=== PATIENT | male | born 1995 | race African-American/Black ===

== ENCOUNTER 2017-09-06 18:21 | Emergency (ER) | payer SELFPAY | END 2017-09-06 21:37 | disposition home or self-care (01) | LOC: D.ER 18:21 | DX: S76.012A Strain of muscle, fascia and tendon of left hip, initial encounter (principal); X58.XXXA Exposure to other specified factors, initial encounter; Y93.61 Activity, american tackle football; Y92.89 Other specified places as the place of occurrence of the external cause; M25.552 Pain in left hip ==

== ENCOUNTER 2019-01-06 16:58 | Emergency (ER) | payer SELFPAY ==
[~2019-01-06] VITALS: Ht 185.4 cm; Wt 85.0 kg
[2019-01-06 17:39] VITALS: Ht 185.4 cm; Wt 85.0 kg
[2019-01-06] MEDS ORDERED: AUGMENTIN 875-11 TAB PO (19:58)
[2019-01-06 20:36] VITALS: BP 116/69
== END 2019-01-06 20:36 | disposition home or self-care (01) ==
LOC: D.ER 16:58
DX: S01.81XA Laceration without foreign body of other part of head, initial encounter (principal); W54.0XXA Bitten by dog, initial encounter; Y93.89 Activity, other specified; Y92.89 Other specified places as the place of occurrence of the external cause